=== PATIENT | female | born 1940 | race Hispanic/Latino ===

== ENCOUNTER 2020-03-04 11:14 | Inpatient (IN) | payer OTHER ==
[~2020-03-04] VITALS: Ht 167.6 cm; Wt 66.2 kg
[~2020-03-04 11:14] MED LIST: LISI1TAB29 PO; SIMV10TA97 PO
[2020-03-04 11:51] LABS: ABG BASE EXCESS 3.4 mmol/L (-2.0-3.0); ABG HCO3 26.5 mmol/L (21.0-28.0); ABG OXYGEN SATURATION 91.7 % (95.0-99.0); ABG PCO2 36 mmHg (32-45)
[2020-03-04 12:00] LABS: RAPID GROUP A STREP NEGATIVE (NEGATIVE)
[2020-03-04 12:31] LABS: BASOPHILS % (AUTO) 0.3 % (0.0-5.0); HEMATOCRIT 36.6 % (36-48); LYMPHOCYTES % (AUTO) 10.4 % (21.0-51.0); MEAN CORPUSCULAR HEMOGLOBIN 28.6 pg (27.0-33.0); MEAN CORPUSCULAR HGB CONC 33.3 g/dL (32.0-36.0); MEAN CORPUSCULAR VOLUME 85.9 fL (79-99); MONOCYTES % (AUTO) 13.2 % (3.0-13.0); NEUTROPHILS % (AUTO) 74.8 % (40.0-77.0); PLATELET COUNT (AUTO) 152 K/uL (130-400); RED BLOOD CELL COUNT(AUTO) 4.26 MIL/uL (4.00-5.50); RED CELL DISTRIBUTION WIDTH 13.2 % (11.0-15.5)
[2020-03-04 12:47] LABS: POTASSIUM 3.9 mmol/L (3.5-5.1)
[2020-03-04 12:52] LABS: BILIRUBIN,TOTAL 0.8 mg/dL (0.2-1.0); INR 0.92 (0.85-1.15); TOTAL PROTEIN, SERUM 7.3 g/dL (6.0-8.3)
[2020-03-04 14:43] LABS: APPEARANCE,URINE Clear (CLEAR); BILIRUBIN,URINE Negative (NEGATIVE); COLOR,URINE Yellow (YELLOW); GLUCOSE, URINE (UA) Negative (NEGATIVE); KETONES,URINE Negative (NEGATIVE); LEUKOCYTE ESTERASE ,URINE Negative (NEGATIVE); NITRATE,URINE Negative (NEGATIVE); OCCULT BLOOD,URINE Negative (NEGATIVE); PH,URINE 6.5 (5.0-8.0); PROTEIN,URINE POS 1+ mg/dL (NEGATIVE)
[2020-03-04 14:47] LABS: BACTERIA,URINE Few /HPF (None Seen); RBC,URINE None Seen /HPF (0-1); WBC,URINE 0-1 /HPF (0-1)
[2020-03-04] MEDS ORDERED: LACTULOSE 20 GM/30 ML UDCUP PO PRN (15:45)
[2020-03-04] MEDS ORDERED: ACETAMINOPHEN 325 MG TAB PO PRN ×2 (15:45)
[2020-03-04] MEDS: CEFTRIAXONE SODIUM 1 GM IV SCH (15:45)
[2020-03-04] MEDS ORDERED: ONDANSETRON HCL 4 MG/2 ML VIAL IV PRN (15:45)
[2020-03-04] MEDS ORDERED: HYDRALAZINE HCL 20 MG/ML VIAL IV PRN (15:45)
[2020-03-04] MEDS: AZITHROMYCIN 500MG+NS 250ML 250 ML IV SCH (15:45)
[2020-03-04 17:03] LABS: CRP QUANTITATIVE 111.5 mg/L (0.00-9.0)
[2020-03-04] MEDS ORDERED: CEFTRIAXONE SODIUM 1 GM ONE (17:35)
[2020-03-04] MEDS ORDERED: AZITHROMYCIN 500MG+NS 250ML 250 ML IV ONE (17:35)
[2020-03-04] MEDS ORDERED: ACETAMINOPHEN 325 MG TAB ONE (20:43)
[2020-03-04] MEDS ORDERED: METHYLPREDNISOLONE SOD SUCC 40MG/ML 1ML IVP SCH (21:00)
[2020-03-04] MEDS ORDERED: FAMOTIDINE/PF 20 MG/2 ML VIAL IV ONE (21:06)
[2020-03-05] MEDS ORDERED: FAMOTIDINE 20MG TAB 20 MG TAB ONE ×2 (09:37→20:40)
[2020-03-05] MEDS ORDERED: METHYLPREDNISOLONE SOD SUCC 40MG/ML 1ML ONE ×2 (09:37→20:39)
[2020-03-05] MEDS ORDERED: ENOXAPARIN SODIUM 40 MG/0.4 ML SYRINGE SQ ONE (09:37)
[2020-03-05] MEDS ORDERED: LISI-613 PO (11:07)
[2020-03-05] MEDS ORDERED: ROSU5TAB PO (11:07)
[2020-03-05] MEDS ORDERED: ASPI-556 PO (11:07)
[2020-03-05 13:01] LABS: HEMATOCRIT 36.1 % (36-48); MEAN CORPUSCULAR HEMOGLOBIN 28.9 pg (27.0-33.0); MEAN CORPUSCULAR HGB CONC 33.5 g/dL (32.0-36.0); MEAN CORPUSCULAR VOLUME 86.4 fL (79-99); PLATELET COUNT (AUTO) 181 K/uL (130-400); RED BLOOD CELL COUNT(AUTO) 4.18 MIL/uL (4.00-5.50); RED CELL DISTRIBUTION WIDTH 13.4 % (11.0-15.5)
[2020-03-05 13:22] LABS: ALBUMIN 2.7 g/dL (3.5-5.0); BILIRUBIN,TOTAL 0.6 mg/dL (0.2-1.0); CREATININE 0.8 mg/dL (0.5-1.5); POTASSIUM 4.2 mmol/L (3.5-5.1); TOTAL PROTEIN, SERUM 6.9 g/dL (6.0-8.3)
[2020-03-05 13:57] LABS: EOSINOPHILS % (MANUAL) 1 % (1-6); LYMPHOCYTES % (MANUAL) 8 % (22-44); MAN.DIFF COMMENT-IMPRESSION MANUAL DIFFERENTIAL; MONOCYTES % (MANUAL) 6 % (2-9); PLATELET MORPHOLOGY COMMENT ADEQUATE; SEGMENTED NEUTROPHILS % 85 % (40-70)
[2020-03-05] MEDS ORDERED: NITROGLYCERIN 1GM/1 INCH PACKET TD ONE (13:58)
[2020-03-05] MEDS ORDERED: AZITHROMYCIN 500MG+NS 250ML 250 ML IV ONE (18:08)
[2020-03-05] MEDS ORDERED: CEFTRIAXONE SODIUM 1 GM ONE (18:08)
[2020-03-05] MEDS ORDERED: SODIUM CHLORIDE 0.9% 50 ML IV ONE (18:10)
[2020-03-05] MEDS ORDERED: ALBUTEROL INHALER 90MCG/INH IH ONE (20:39)
[2020-03-05] MEDS ORDERED: NON-FORMULARY MEDICATION 1 EACH (Rosuvastatin Calcium (Crestor) 5 MG) PO SCH (21:00)
[2020-03-05] MEDS: ATORVASTATIN CALCIUM 10 MG TABLET PO SCH (21:00)
[2020-03-05] MEDS ORDERED: ATORVASTATIN CALCIUM 10 MG TABLET ONE (21:15)
[2020-03-06] MEDS ORDERED: METHYLPREDNISOLONE SOD SUCC 40MG/ML 1ML ONE (08:33)
[2020-03-06] MEDS ORDERED: FAMOTIDINE 20MG TAB 20 MG TAB ONE (08:33)
[2020-03-06] MEDS ORDERED: DEXAMETHASONE 4 MG TAB ONE (08:34)
[2020-03-06] MEDS ORDERED: ENOXAPARIN SODIUM 40 MG/0.4 ML SYRINGE SQ ONE (08:34)
[2020-03-06] MEDS: FAMOTIDINE 20MG TAB 20 MG TAB PO SCH ×2 (09:00→22:11)
[2020-03-06] MEDS: ENOXAPARIN SODIUM 40 MG/0.4 ML SYRINGE SQ SCH (09:00)
[2020-03-06] MEDS: ASPIRIN 81 MG EC TAB PO SCH (09:00)
[2020-03-06] MEDS: DEXAMETHASONE SOD PHOSPHATE 4 MG/ML 1ML VIAL IV SCH (09:00)
[2020-03-06] MEDS: LISINOPRIL 20 MG TABLET PO SCH (09:00)
[2020-03-06 10:04] LABS: BASOPHILS % (AUTO) 0.2 % (0.0-5.0); HEMATOCRIT 37.8 % (36-48); LYMPHOCYTES % (AUTO) 10.8 % (21.0-51.0); MEAN CORPUSCULAR HEMOGLOBIN 28.1 pg (27.0-33.0); MEAN CORPUSCULAR HGB CONC 32.5 g/dL (32.0-36.0); MEAN CORPUSCULAR VOLUME 86.3 fL (79-99); MONOCYTES % (AUTO) 12.5 % (3.0-13.0); NEUTROPHILS % (AUTO) 75.2 % (40.0-77.0); PLATELET COUNT (AUTO) 231 K/uL (130-400); RED BLOOD CELL COUNT(AUTO) 4.38 MIL/uL (4.00-5.50); RED CELL DISTRIBUTION WIDTH 13.1 % (11.0-15.5); WHITE BLOOD COUNT (AUTO) 6.4 K/uL (4.8-10.8)
[2020-03-06 10:38] LABS: ALANINE AMINOTRANSFERASE 49 U/L (12-78); ALBUMIN 2.8 g/dL (3.5-5.0); ASPARTATE AMINOTRANSFERASE 64 U/L (10-37); BILIRUBIN,TOTAL 0.5 mg/dL (0.2-1.0); CARBON DIOXIDE 27 mmol/L (21-32); CHLORIDE 104 mmol/L (101-111); CREATININE 0.9 mg/dL (0.5-1.5); GLOMERULAR FILTR. RATE CALC 65 mL/min (>60); GLUCOSE,RANDOM 208 mg/dL (70-105); LACTATE DEHYDROGENASE 346 U/L (81-234); SODIUM SERUM 139 mmol/L (136-145); TOTAL PROTEIN, SERUM 7.2 g/dL (6.0-8.3); UREA NITROGEN, BLOOD 20 mg/dL (7-18)
[2020-03-06] MEDS: NITROGLYCERIN 1GM/1 INCH PACKET TD SCH ×2 (12:30→22:11)
[2020-03-06] MEDS: ALBUTEROL INHALER 90MCG/INH IH SCH ×3 (14:00→22:12)
[2020-03-06] MEDS ORDERED: DEXTROSE 50%-WATER 50 ML DISP.SYRIN IV PRN (14:15)
[2020-03-06] MEDS ORDERED: GLUCAGON 1MG KIT 1 MG ML IM PRN (14:15)
[2020-03-06] MEDS: CEFTRIAXONE SODIUM 1 GM IV SCH (15:45)
[2020-03-06] MEDS: AZITHROMYCIN 500MG+NS 250ML 250 ML IV SCH (15:45)
[2020-03-06 16:00] VITALS: BP 169/89
[2020-03-06] MEDS: INSULIN R PO SS1 SQ SCH ×2 (16:30→22:27)
[2020-03-06 19:45] VITALS: BP 144/73
[2020-03-06] MEDS: ATORVASTATIN CALCIUM 10 MG TABLET PO SCH (22:11)
[2020-03-06 23:26] VITALS: BP 143/66
[2020-03-07] MEDS: ALBUTEROL INHALER 90MCG/INH IH SCH ×6 (02:29→22:19)
[2020-03-07 03:55] VITALS: BP 125/60
[2020-03-07] MEDS: NITROGLYCERIN 1GM/1 INCH PACKET TD SCH ×3 (04:40→21:52)
[2020-03-07] MEDS: INSULIN R PO SS1 SQ SCH ×4 (06:23→21:00)
[2020-03-07] MEDS: DEXAMETHASONE SOD PHOSPHATE 4 MG/ML 1ML VIAL IV SCH (07:26)
[2020-03-07] MEDS: FAMOTIDINE 20MG TAB 20 MG TAB PO SCH ×2 (07:26→21:52)
[2020-03-07] MEDS: LISINOPRIL 20 MG TABLET PO SCH (07:26)
[2020-03-07] MEDS: ASPIRIN 81 MG EC TAB PO SCH (07:27)
[2020-03-07] MEDS: ENOXAPARIN SODIUM 40 MG/0.4 ML SYRINGE SQ SCH ×2 (07:27→21:53)
[2020-03-07 08:00] VITALS: BP 131/67
[2020-03-07 08:08] LABS: BASOPHILS % (AUTO) 0.1 % (0.0-5.0); HEMATOCRIT 34.4 % (36-48); LYMPHOCYTES % (AUTO) 6.2 % (21.0-51.0); MEAN CORPUSCULAR HEMOGLOBIN 28.7 pg (27.0-33.0); MEAN CORPUSCULAR HGB CONC 32.8 g/dL (32.0-36.0); MEAN CORPUSCULAR VOLUME 87.3 fL (79-99); MONOCYTES % (AUTO) 11.7 % (3.0-13.0); NEUTROPHILS % (AUTO) 80.9 % (40.0-77.0); PLATELET COUNT (AUTO) 265 K/uL (130-400); RED BLOOD CELL COUNT(AUTO) 3.94 MIL/uL (4.00-5.50); RED CELL DISTRIBUTION WIDTH 13.1 % (11.0-15.5); WHITE BLOOD COUNT (AUTO) 13.6 K/uL (4.8-10.8)
[2020-03-07 10:21] LABS: ALANINE AMINOTRANSFERASE 75 U/L (12-78); ALBUMIN 2.8 g/dL (3.5-5.0); ASPARTATE AMINOTRANSFERASE 87 U/L (10-37); BILIRUBIN,TOTAL 0.4 mg/dL (0.2-1.0); CARBON DIOXIDE 25 mmol/L (21-32); CHLORIDE 105 mmol/L (101-111); CREATININE 0.9 mg/dL (0.5-1.5); GLOMERULAR FILTR. RATE CALC 65 mL/min (>60); GLUCOSE,RANDOM 163 mg/dL (70-105); LACTATE DEHYDROGENASE 329 U/L (81-234); POTASSIUM 4.3 mmol/L (3.5-5.1); SODIUM SERUM 141 mmol/L (136-145); TOTAL PROTEIN, SERUM 6.6 g/dL (6.0-8.3); UREA NITROGEN, BLOOD 24 mg/dL (7-18)
[2020-03-07 11:00] VITALS: BP 131/69
[2020-03-07] MEDS: AZITHROMYCIN 500MG+NS 250ML 250 ML IV SCH (14:36)
[2020-03-07] MEDS: CEFTRIAXONE SODIUM 1 GM IV SCH (14:36)
[2020-03-07 16:00] VITALS: BP 128/63
[2020-03-07 20:28] VITALS: BP 131/67
[2020-03-07] MEDS: ATORVASTATIN CALCIUM 10 MG TABLET PO SCH (21:52)
[2020-03-07 23:58] VITALS: BP 128/56
[2020-03-08] MEDS: ALBUTEROL INHALER 90MCG/INH IH SCH ×6 (02:56→21:21)
[2020-03-08 04:07] VITALS: BP 142/72
[2020-03-08] MEDS: NITROGLYCERIN 1GM/1 INCH PACKET TD SCH ×3 (04:34→20:55)
[2020-03-08] MEDS: INSULIN R PO SS1 SQ SCH ×4 (06:02→20:56)
[2020-03-08 07:28] LABS: BASOPHILS % (AUTO) 0.1 % (0.0-5.0); HEMATOCRIT 35.9 % (36-48); LYMPHOCYTES % (AUTO) 9.8 % (21.0-51.0); MEAN CORPUSCULAR HEMOGLOBIN 27.6 pg (27.0-33.0); MEAN CORPUSCULAR HGB CONC 31.8 g/dL (32.0-36.0); MEAN CORPUSCULAR VOLUME 86.9 fL (79-99); MONOCYTES % (AUTO) 13.9 % (3.0-13.0); NEUTROPHILS % (AUTO) 74.6 % (40.0-77.0); PLATELET COUNT (AUTO) 273 K/uL (130-400); RED BLOOD CELL COUNT(AUTO) 4.13 MIL/uL (4.00-5.50); RED CELL DISTRIBUTION WIDTH 13.3 % (11.0-15.5); WHITE BLOOD COUNT (AUTO) 11.3 K/uL (4.8-10.8)
[2020-03-08 07:55] LABS: ALANINE AMINOTRANSFERASE 104 U/L (12-78); ALBUMIN 2.7 g/dL (3.5-5.0); ASPARTATE AMINOTRANSFERASE 116 U/L (10-37); BILIRUBIN,TOTAL 0.5 mg/dL (0.2-1.0); CARBON DIOXIDE 29 mmol/L (21-32); CHLORIDE 107 mmol/L (101-111); CREATININE 0.9 mg/dL (0.5-1.5); GLOMERULAR FILTR. RATE CALC 65 mL/min (>60); GLUCOSE,RANDOM 107 mg/dL (70-105); LACTATE DEHYDROGENASE 330 U/L (81-234); POTASSIUM 3.7 mmol/L (3.5-5.1); SODIUM SERUM 142 mmol/L (136-145); TOTAL PROTEIN, SERUM 6.6 g/dL (6.0-8.3); UREA NITROGEN, BLOOD 22 mg/dL (7-18)
[2020-03-08 08:00] VITALS: BP 147/75
[2020-03-08] MEDS: FAMOTIDINE 20MG TAB 20 MG TAB PO SCH ×2 (09:27→20:55)
[2020-03-08] MEDS: LISINOPRIL 20 MG TABLET PO SCH (09:27)
[2020-03-08] MEDS: ASPIRIN 81 MG EC TAB PO SCH (09:27)
[2020-03-08] MEDS: DEXAMETHASONE SOD PHOSPHATE 4 MG/ML 1ML VIAL IV SCH (09:58)
[2020-03-08] MEDS: ENOXAPARIN SODIUM 40 MG/0.4 ML SYRINGE SQ SCH ×2 (09:59→20:56)
[2020-03-08 12:00] VITALS: BP 139/85
[2020-03-08 16:00] VITALS: BP 140/59
[2020-03-08 19:56] VITALS: BP 103/50
[2020-03-08] MEDS: ATORVASTATIN CALCIUM 10 MG TABLET PO SCH (20:55)
[2020-03-08] MEDS: DOXYCYCLINE HYCLATE 100 MG TABLET PO SCH (20:55)
[2020-03-08 23:41] VITALS: BP 124/58
[2020-03-09] MEDS: ALBUTEROL INHALER 90MCG/INH IH SCH ×6 (02:00→21:44)
[2020-03-09 03:21] VITALS: BP 133/69
[2020-03-09] MEDS: NITROGLYCERIN 1GM/1 INCH PACKET TD SCH ×3 (04:23→21:43)
[2020-03-09] MEDS: INSULIN R PO SS1 SQ SCH ×4 (05:58→21:42)
[2020-03-09 07:30] VITALS: BP_SYST 142; BP_SYST 42; BP_DIAS 68
[2020-03-09 07:49] LABS: BASOPHILS % (AUTO) 0.4 % (0.0-5.0); HEMATOCRIT 34.7 % (36-48); LYMPHOCYTES % (AUTO) 7.6 % (21.0-51.0); MEAN CORPUSCULAR HEMOGLOBIN 28.7 pg (27.0-33.0); MEAN CORPUSCULAR HGB CONC 33.1 g/dL (32.0-36.0); MEAN CORPUSCULAR VOLUME 86.5 fL (79-99); MONOCYTES % (AUTO) 16.4 % (3.0-13.0); NEUTROPHILS % (AUTO) 69.4 % (40.0-77.0); PLATELET COUNT (AUTO) 285 K/uL (130-400); RED BLOOD CELL COUNT(AUTO) 4.01 MIL/uL (4.00-5.50); RED CELL DISTRIBUTION WIDTH 13.2 % (11.0-15.5); WHITE BLOOD COUNT (AUTO) 11.2 K/uL (4.8-10.8)
[2020-03-09 08:15] LABS: CARBON DIOXIDE 27 mmol/L (21-32); CHLORIDE 105 mmol/L (101-111); CREATININE 0.9 mg/dL (0.5-1.5); GLOMERULAR FILTR. RATE CALC 65 mL/min (>60); GLUCOSE,RANDOM 111 mg/dL (70-105); LACTATE DEHYDROGENASE 300 U/L (81-234); POTASSIUM 3.7 mmol/L (3.5-5.1); SODIUM SERUM 141 mmol/L (136-145); UREA NITROGEN, BLOOD 21 mg/dL (7-18)
[2020-03-09] MEDS: DOXYCYCLINE HYCLATE 100 MG TABLET PO SCH ×2 (09:51→21:39)
[2020-03-09] MEDS: LISINOPRIL 20 MG TABLET PO SCH (09:51)
[2020-03-09] MEDS: ASPIRIN 81 MG EC TAB PO SCH (09:51)
[2020-03-09] MEDS: DEXAMETHASONE SOD PHOSPHATE 4 MG/ML 1ML VIAL IV SCH ×2 (09:52→21:43)
[2020-03-09] MEDS: FAMOTIDINE 20MG TAB 20 MG TAB PO SCH ×2 (09:52→21:40)
[2020-03-09] MEDS: ENOXAPARIN SODIUM 40 MG/0.4 ML SYRINGE SQ SCH ×2 (09:53→21:44)
[2020-03-09 11:00] VITALS: BP 130/56
[2020-03-09 16:00] VITALS: BP 120/55
[2020-03-09 20:11] VITALS: BP 127/58
[2020-03-09] MEDS: ATORVASTATIN CALCIUM 10 MG TABLET PO SCH (21:39)
[2020-03-09] MEDS: ACETYLCYSTEINE 600 MG CAPSULE PO SCH (21:40)
[2020-03-09 23:33] VITALS: BP 132/61
[2020-03-10] MEDS: ALBUTEROL INHALER 90MCG/INH IH SCH ×6 (01:28→23:56)
[2020-03-10 03:36] VITALS: BP 139/61
[2020-03-10] MEDS: NITROGLYCERIN 1GM/1 INCH PACKET TD SCH ×3 (05:22→20:30)
[2020-03-10] MEDS: INSULIN R PO SS1 SQ SCH ×4 (06:03→21:00)
[2020-03-10 07:05] LABS: BASOPHILS % (AUTO) 0.5 % (0.0-5.0); HEMATOCRIT 34.6 % (36-48); LYMPHOCYTES % (AUTO) 8.5 % (21.0-51.0); MEAN CORPUSCULAR HEMOGLOBIN 27.9 pg (27.0-33.0); MEAN CORPUSCULAR HGB CONC 32.4 g/dL (32.0-36.0); MEAN CORPUSCULAR VOLUME 86.1 fL (79-99); PLATELET COUNT (AUTO) 312 K/uL (130-400); RED BLOOD CELL COUNT(AUTO) 4.02 MIL/uL (4.00-5.50); RED CELL DISTRIBUTION WIDTH 13.2 % (11.0-15.5); WHITE BLOOD COUNT (AUTO) 8.7 K/uL (4.8-10.8)
[2020-03-10 07:20] LABS: ALANINE AMINOTRANSFERASE 89 U/L (12-78); ALBUMIN 2.7 g/dL (3.5-5.0); ASPARTATE AMINOTRANSFERASE 53 U/L (10-37); BILIRUBIN,TOTAL 0.7 mg/dL (0.2-1.0); CARBON DIOXIDE 27 mmol/L (21-32); CHLORIDE 107 mmol/L (101-111); CREATININE 0.9 mg/dL (0.5-1.5); GLOMERULAR FILTR. RATE CALC 65 mL/min (>60); GLUCOSE,RANDOM 167 mg/dL (70-105); LACTATE DEHYDROGENASE 280 U/L (81-234); POTASSIUM 4.8 mmol/L (3.5-5.1); SODIUM SERUM 142 mmol/L (136-145); TOTAL PROTEIN, SERUM 6.6 g/dL (6.0-8.3); UREA NITROGEN, BLOOD 21 mg/dL (7-18)
[2020-03-10 08:00] VITALS: BP 144/62
[2020-03-10] MEDS: FAMOTIDINE 20MG TAB 20 MG TAB PO SCH ×2 (09:39→22:40)
[2020-03-10] MEDS: LISINOPRIL 20 MG TABLET PO SCH (09:39)
[2020-03-10] MEDS: DOXYCYCLINE HYCLATE 100 MG TABLET PO SCH ×2 (09:39→22:39)
[2020-03-10] MEDS: ASPIRIN 81 MG EC TAB PO SCH (09:39)
[2020-03-10] MEDS: DEXAMETHASONE SOD PHOSPHATE 4 MG/ML 1ML VIAL IV SCH ×2 (09:39→22:39)
[2020-03-10] MEDS: ENOXAPARIN SODIUM 40 MG/0.4 ML SYRINGE SQ SCH ×2 (09:40→21:00)
[2020-03-10] MEDS: ACETYLCYSTEINE 600 MG CAPSULE PO SCH ×2 (09:40→22:40)
[2020-03-10 12:00] VITALS: BP 151/62
[2020-03-10] MEDS: INSULIN GLARGINE 100 UNITS/ML 10 ML VIAL SQ SCH ×2 (12:52→21:00)
[2020-03-10 16:00] VITALS: BP 126/72
[2020-03-10 21:12] VITALS: BP 118/67
[2020-03-10] MEDS: ATORVASTATIN CALCIUM 10 MG TABLET PO SCH (22:39)
[2020-03-11 00:52] VITALS: BP 133/60
[2020-03-11] MEDS: ALBUTEROL INHALER 90MCG/INH IH SCH ×6 (03:32→21:52)
[2020-03-11] MEDS: NITROGLYCERIN 1GM/1 INCH PACKET TD SCH ×3 (04:30→21:51)
[2020-03-11 04:45] VITALS: BP 133/64
[2020-03-11 05:53] LABS: BASOPHILS % (AUTO) 0.3 % (0.0-5.0); HEMATOCRIT 33.2 % (36-48); LYMPHOCYTES % (AUTO) 5.7 % (21.0-51.0); MEAN CORPUSCULAR HEMOGLOBIN 28.1 pg (27.0-33.0); MEAN CORPUSCULAR HGB CONC 32.8 g/dL (32.0-36.0); MEAN CORPUSCULAR VOLUME 85.6 fL (79-99); MONOCYTES % (AUTO) 9.5 % (3.0-13.0); PLATELET COUNT (AUTO) 327 K/uL (130-400); RED BLOOD CELL COUNT(AUTO) 3.88 MIL/uL (4.00-5.50); RED CELL DISTRIBUTION WIDTH 13.4 % (11.0-15.5); WHITE BLOOD COUNT (AUTO) 11.9 K/uL (4.8-10.8)
[2020-03-11] MEDS: INSULIN R PO SS1 SQ SCH ×5 (06:15→21:25)
[2020-03-11 06:52] LABS: ALANINE AMINOTRANSFERASE 78 U/L (12-78); ALBUMIN 2.4 g/dL (3.5-5.0); ASPARTATE AMINOTRANSFERASE 41 U/L (10-37); BILIRUBIN,TOTAL 0.5 mg/dL (0.2-1.0); CARBON DIOXIDE 23 mmol/L (21-32); CHLORIDE 105 mmol/L (101-111); CREATININE 0.8 mg/dL (0.5-1.5); GLOMERULAR FILTR. RATE CALC 74 mL/min (>60); GLUCOSE,RANDOM 142 mg/dL (70-105); LACTATE DEHYDROGENASE 264 U/L (81-234); POTASSIUM 3.9 mmol/L (3.5-5.1); SODIUM SERUM 140 mmol/L (136-145); TOTAL PROTEIN, SERUM 6.1 g/dL (6.0-8.3); UREA NITROGEN, BLOOD 25 mg/dL (7-18)
[2020-03-11] MEDS: INSULIN GLARGINE 100 UNITS/ML 10 ML VIAL SQ SCH ×2 (07:18→21:26)
[2020-03-11 09:25] VITALS: BP 122/51
[2020-03-11] MEDS: ACETYLCYSTEINE 600 MG CAPSULE PO SCH ×2 (09:32→21:51)
[2020-03-11] MEDS: LISINOPRIL 20 MG TABLET PO SCH (09:33)
[2020-03-11] MEDS: DEXAMETHASONE SOD PHOSPHATE 4 MG/ML 1ML VIAL IV SCH ×3 (09:33→21:51)
[2020-03-11] MEDS: FAMOTIDINE 20MG TAB 20 MG TAB PO SCH ×2 (09:34→20:27)
[2020-03-11] MEDS: ASPIRIN 81 MG EC TAB PO SCH (09:34)
[2020-03-11] MEDS: ENOXAPARIN SODIUM 40 MG/0.4 ML SYRINGE SQ SCH ×2 (09:34→21:52)
[2020-03-11 13:51] VITALS: BP 127/61
[2020-03-11 17:16] VITALS: BP 122/60
[2020-03-11 20:00] VITALS: BP 129/62
[2020-03-11] MEDS ORDERED: FAMOTIDINE/PF 20 MG/2 ML VIAL IV ONE (20:13)
[2020-03-11] MEDS: ATORVASTATIN CALCIUM 10 MG TABLET PO SCH (21:51)
[2020-03-12] VITALS: BP 143/67
[2020-03-12] MEDS: ALBUTEROL INHALER 90MCG/INH IH SCH ×6 (02:17→22:35)
[2020-03-12 04:00] VITALS: BP 135/62
[2020-03-12] MEDS: NITROGLYCERIN 1GM/1 INCH PACKET TD SCH (04:30)
[2020-03-12] MEDS: INSULIN R PO SS1 SQ SCH ×4 (06:16→22:36)
[2020-03-12] MEDS: INSULIN GLARGINE 100 UNITS/ML 10 ML VIAL SQ SCH ×2 (06:24→22:47)
[2020-03-12 06:42] LABS: BASOPHILS % (AUTO) 0.2 % (0.0-5.0); HEMATOCRIT 34.2 % (36-48); MEAN CORPUSCULAR HEMOGLOBIN 27.9 pg (27.0-33.0); MEAN CORPUSCULAR HGB CONC 32.2 g/dL (32.0-36.0); MEAN CORPUSCULAR VOLUME 86.8 fL (79-99); MONOCYTES % (AUTO) 9.1 % (3.0-13.0); NEUTROPHILS % (AUTO) 77.2 % (40.0-77.0); PLATELET COUNT (AUTO) 367 K/uL (130-400); RED BLOOD CELL COUNT(AUTO) 3.94 MIL/uL (4.00-5.50); RED CELL DISTRIBUTION WIDTH 13.6 % (11.0-15.5); WHITE BLOOD COUNT (AUTO) 12.8 K/uL (4.8-10.8)
[2020-03-12 07:30] LABS: ALANINE AMINOTRANSFERASE 79 U/L (12-78); ALBUMIN 2.5 g/dL (3.5-5.0); ASPARTATE AMINOTRANSFERASE 39 U/L (10-37); BILIRUBIN,TOTAL 0.5 mg/dL (0.2-1.0); CARBON DIOXIDE 26 mmol/L (21-32); CHLORIDE 106 mmol/L (101-111); CREATININE 0.8 mg/dL (0.5-1.5); GLOMERULAR FILTR. RATE CALC 74 mL/min (>60); GLUCOSE,RANDOM 150 mg/dL (70-105); LACTATE DEHYDROGENASE 245 U/L (81-234); POTASSIUM 4.1 mmol/L (3.5-5.1); SODIUM SERUM 140 mmol/L (136-145); TOTAL PROTEIN, SERUM 6.1 g/dL (6.0-8.3); UREA NITROGEN, BLOOD 25 mg/dL (7-18)
[2020-03-12 08:53] VITALS: BP 133/64
[2020-03-12] MEDS: ACETYLCYSTEINE 600 MG CAPSULE PO SCH ×2 (08:54→22:34)
[2020-03-12] MEDS: LISINOPRIL 20 MG TABLET PO SCH (08:54)
[2020-03-12] MEDS: ASPIRIN 81 MG EC TAB PO SCH (08:54)
[2020-03-12] MEDS: DEXAMETHASONE SOD PHOSPHATE 4 MG/ML 1ML VIAL IV SCH ×3 (08:54→22:34)
[2020-03-12] MEDS: ENOXAPARIN SODIUM 40 MG/0.4 ML SYRINGE SQ SCH ×2 (08:56→22:35)
[2020-03-12] MEDS ORDERED: BENZONATATE 100 MG CAPSULE PO PRN (10:30)
[2020-03-12 11:09] VITALS: BP 129/59
[2020-03-12 16:39] VITALS: BP 143/60
[2020-03-12 19:40] VITALS: BP 126/49
[2020-03-12] MEDS: FAMOTIDINE/PF 20 MG/2 ML VIAL IV SCH (22:34)
[2020-03-12] MEDS: ATORVASTATIN CALCIUM 10 MG TABLET PO SCH (22:34)
[2020-03-13 00:21] VITALS: BP 131/66
[2020-03-13] MEDS: ALBUTEROL INHALER 90MCG/INH IH SCH ×6 (03:19→21:49)
[2020-03-13 03:26] VITALS: BP 128/63
[2020-03-13] MEDS: INSULIN R PO SS1 SQ SCH ×4 (05:56→21:00)
[2020-03-13] MEDS: INSULIN GLARGINE 100 UNITS/ML 10 ML VIAL SQ SCH ×2 (06:26→21:50)
[2020-03-13 08:43] VITALS: BP 129/61
[2020-03-13] MEDS: FAMOTIDINE/PF 20 MG/2 ML VIAL IV SCH ×2 (08:52→21:48)
[2020-03-13] MEDS: ASPIRIN 81 MG EC TAB PO SCH (08:53)
[2020-03-13] MEDS: ENOXAPARIN SODIUM 40 MG/0.4 ML SYRINGE SQ SCH ×2 (08:53→21:49)
[2020-03-13] MEDS: LISINOPRIL 20 MG TABLET PO SCH (08:53)
[2020-03-13] MEDS: DEXAMETHASONE SOD PHOSPHATE 4 MG/ML 1ML VIAL IV SCH ×3 (08:53→21:48)
[2020-03-13] MEDS: ACETYLCYSTEINE 600 MG CAPSULE PO SCH ×2 (08:53→21:48)
[2020-03-13 11:12] VITALS: BP 117/57
[2020-03-13 16:57] VITALS: BP 122/62
[2020-03-13] MEDS: METFORMIN HCL 500 MG TABLET PO SCH (17:20)
[2020-03-13 19:30] VITALS: BP 110/59
[2020-03-13] MEDS: ATORVASTATIN CALCIUM 10 MG TABLET PO SCH (21:48)
[2020-03-14] VITALS: BP 113/48
[2020-03-14] MEDS: ALBUTEROL INHALER 90MCG/INH IH SCH ×5 (03:43→21:38)
[2020-03-14 04:00] VITALS: BP 126/54
[2020-03-14 05:41] LABS: BASOPHILS % (AUTO) 0.3 % (0.0-5.0); HEMATOCRIT 36.1 % (36-48); LYMPHOCYTES % (AUTO) 5.3 % (21.0-51.0); MEAN CORPUSCULAR HEMOGLOBIN 28.3 pg (27.0-33.0); NEUTROPHILS % (AUTO) 79.9 % (40.0-77.0); PLATELET COUNT (AUTO) 345 K/uL (130-400); RED CELL DISTRIBUTION WIDTH 13.7 % (11.0-15.5); WHITE BLOOD COUNT (AUTO) 14.2 K/uL (4.8-10.8)
[2020-03-14] MEDS: INSULIN R PO SS1 SQ SCH ×4 (05:58→21:00)
[2020-03-14 06:00] LABS: ALANINE AMINOTRANSFERASE 75 U/L (12-78); ALBUMIN 2.5 g/dL (3.5-5.0); ASPARTATE AMINOTRANSFERASE 37 U/L (10-37); BILIRUBIN,TOTAL 0.7 mg/dL (0.2-1.0); CARBON DIOXIDE 26 mmol/L (21-32); CHLORIDE 104 mmol/L (101-111); GLOMERULAR FILTR. RATE CALC 57 mL/min (>60); GLUCOSE,RANDOM 155 mg/dL (70-105); LACTATE DEHYDROGENASE 219 U/L (81-234); POTASSIUM 4.5 mmol/L (3.5-5.1); SODIUM SERUM 137 mmol/L (136-145); TOTAL PROTEIN, SERUM 5.9 g/dL (6.0-8.3); UREA NITROGEN, BLOOD 31 mg/dL (7-18)
[2020-03-14] MEDS: INSULIN GLARGINE 100 UNITS/ML 10 ML VIAL SQ SCH ×2 (06:45→21:00)
[2020-03-14 08:00] VITALS: BP 118/56
[2020-03-14] MEDS: FAMOTIDINE/PF 20 MG/2 ML VIAL IV SCH ×2 (08:57→21:38)
[2020-03-14] MEDS: ACETYLCYSTEINE 600 MG CAPSULE PO SCH ×2 (08:57→21:38)
[2020-03-14] MEDS: METFORMIN HCL 500 MG TABLET PO SCH ×2 (08:57→17:39)
[2020-03-14] MEDS: ASPIRIN 81 MG EC TAB PO SCH (08:57)
[2020-03-14] MEDS: LISINOPRIL 20 MG TABLET PO SCH (08:57)
[2020-03-14] MEDS: DEXAMETHASONE SOD PHOSPHATE 4 MG/ML 1ML VIAL IV SCH ×3 (08:58→21:38)
[2020-03-14] MEDS: ENOXAPARIN SODIUM 40 MG/0.4 ML SYRINGE SQ SCH ×2 (08:59→21:38)
[2020-03-14 11:00] VITALS: BP 123/74
[2020-03-14 16:00] VITALS: BP 111/44
[2020-03-14] MEDS: ATORVASTATIN CALCIUM 10 MG TABLET PO SCH (21:38)
[2020-03-14 22:22] VITALS: BP 114/54
[2020-03-15 00:04] VITALS: BP 113/55
[2020-03-15] MEDS: ALBUTEROL INHALER 90MCG/INH IH SCH ×6 (01:16→23:02)
[2020-03-15 05:58] VITALS: BP 124/64
[2020-03-15] MEDS: INSULIN GLARGINE 100 UNITS/ML 10 ML VIAL SQ SCH (06:26)
[2020-03-15] MEDS: INSULIN R PO SS1 SQ SCH ×4 (06:26→21:00)
[2020-03-15 06:28] LABS: BASOPHILS % (AUTO) 0.2 % (0.0-5.0); HEMATOCRIT 36.5 % (36-48); LYMPHOCYTES % (AUTO) 5.5 % (21.0-51.0); MEAN CORPUSCULAR HEMOGLOBIN 28.5 pg (27.0-33.0); MEAN CORPUSCULAR HGB CONC 32.3 g/dL (32.0-36.0); MEAN CORPUSCULAR VOLUME 88.2 fL (79-99); NEUTROPHILS % (AUTO) 80.7 % (40.0-77.0); PLATELET COUNT (AUTO) 318 K/uL (130-400); RED BLOOD CELL COUNT(AUTO) 4.14 MIL/uL (4.00-5.50); RED CELL DISTRIBUTION WIDTH 13.8 % (11.0-15.5); WHITE BLOOD COUNT (AUTO) 12.1 K/uL (4.8-10.8)
[2020-03-15 06:43] LABS: ALANINE AMINOTRANSFERASE 72 U/L (12-78); ALBUMIN 2.4 g/dL (3.5-5.0); ASPARTATE AMINOTRANSFERASE 31 U/L (10-37); BILIRUBIN,TOTAL 0.6 mg/dL (0.2-1.0); CARBON DIOXIDE 26 mmol/L (21-32); CHLORIDE 105 mmol/L (101-111); CREATININE 0.9 mg/dL (0.5-1.5); GLOMERULAR FILTR. RATE CALC 65 mL/min (>60); GLUCOSE,RANDOM 149 mg/dL (70-105); LACTATE DEHYDROGENASE 197 U/L (81-234); POTASSIUM 4.8 mmol/L (3.5-5.1); SODIUM SERUM 137 mmol/L (136-145); TOTAL PROTEIN, SERUM 5.6 g/dL (6.0-8.3); UREA NITROGEN, BLOOD 30 mg/dL (7-18)
[2020-03-15 07:26] LABS: HEMOGLOBIN A1C 7.4 % (4.0-6.0)
[2020-03-15] MEDS: FAMOTIDINE/PF 20 MG/2 ML VIAL IV SCH ×2 (08:36→21:00)
[2020-03-15] MEDS: LISINOPRIL 20 MG TABLET PO SCH (08:36)
[2020-03-15] MEDS: ASPIRIN 81 MG EC TAB PO SCH (08:36)
[2020-03-15] MEDS: METFORMIN HCL 500 MG TABLET PO SCH ×3 (08:36→21:00)
[2020-03-15] MEDS: DEXAMETHASONE SOD PHOSPHATE 4 MG/ML 1ML VIAL IV SCH ×3 (08:40→21:00)
[2020-03-15] MEDS: ENOXAPARIN SODIUM 40 MG/0.4 ML SYRINGE SQ SCH ×2 (08:41→21:00)
[2020-03-15] MEDS: ACETYLCYSTEINE 600 MG CAPSULE PO SCH ×2 (10:08→21:00)
[2020-03-15 10:11] VITALS: BP 113/42
[2020-03-15 12:42] VITALS: BP 114/50
[2020-03-15] MEDS: GLIPIZIDE 5 MG TABLET PO SCH (14:14)
[2020-03-15 16:51] VITALS: BP 120/56
[2020-03-15] MEDS ORDERED: INSULIN GLARGINE 100 UNITS/ML 10 ML VIAL SQ SCH (20:00)
[2020-03-15 20:40] VITALS: BP 108/64
[2020-03-15] MEDS: ATORVASTATIN CALCIUM 10 MG TABLET PO SCH (21:00)
[2020-03-16 01:52] VITALS: BP 112/52
[2020-03-16] MEDS: ALBUTEROL INHALER 90MCG/INH IH SCH ×6 (03:14→23:00)
[2020-03-16 04:59] VITALS: BP 108/55
[2020-03-16 05:14] LABS: BASOPHILS % (AUTO) 0.2 % (0.0-5.0); HEMATOCRIT 35.2 % (36-48); LYMPHOCYTES % (AUTO) 4.1 % (21.0-51.0); MEAN CORPUSCULAR HGB CONC 32.7 g/dL (32.0-36.0); MEAN CORPUSCULAR VOLUME 85.9 fL (79-99); MONOCYTES % (AUTO) 8.8 % (3.0-13.0); NEUTROPHILS % (AUTO) 82.9 % (40.0-77.0); PLATELET COUNT (AUTO) 269 K/uL (130-400); RED CELL DISTRIBUTION WIDTH 13.9 % (11.0-15.5); WHITE BLOOD COUNT (AUTO) 13.5 K/uL (4.8-10.8)
[2020-03-16 05:42] LABS: ALANINE AMINOTRANSFERASE 69 U/L (12-78); ALBUMIN 2.3 g/dL (3.5-5.0); ASPARTATE AMINOTRANSFERASE 24 U/L (10-37); BILIRUBIN,TOTAL 0.6 mg/dL (0.2-1.0); CARBON DIOXIDE 25 mmol/L (21-32); CHLORIDE 104 mmol/L (101-111); GLOMERULAR FILTR. RATE CALC 57 mL/min (>60); GLUCOSE,RANDOM 102 mg/dL (70-105); LACTATE DEHYDROGENASE 201 U/L (81-234); SODIUM SERUM 137 mmol/L (136-145); TOTAL PROTEIN, SERUM 5.5 g/dL (6.0-8.3); UREA NITROGEN, BLOOD 30 mg/dL (7-18)
[2020-03-16] MEDS: INSULIN R PO SS1 SQ SCH ×4 (06:22→21:00)
[2020-03-16] MEDS: GLIPIZIDE 5 MG TABLET PO SCH (06:22)
[2020-03-16] MEDS: ENOXAPARIN SODIUM 40 MG/0.4 ML SYRINGE SQ SCH ×2 (08:35→21:00)
[2020-03-16] MEDS: FAMOTIDINE/PF 20 MG/2 ML VIAL IV SCH ×2 (08:35→22:39)
[2020-03-16] MEDS: ASPIRIN 81 MG EC TAB PO SCH (08:35)
[2020-03-16] MEDS: LISINOPRIL 20 MG TABLET PO SCH (08:35)
[2020-03-16] MEDS: METFORMIN HCL 500 MG TABLET PO SCH ×3 (08:36→21:00)
[2020-03-16] MEDS: ACETYLCYSTEINE 600 MG CAPSULE PO SCH ×2 (08:43→21:00)
[2020-03-16] MEDS: DEXAMETHASONE SOD PHOSPHATE 10MG/ML 1ML VIAL IV SCH (08:43)
[2020-03-16 09:40] VITALS: BP 106/67
[2020-03-16 12:22] VITALS: BP 115/58
[2020-03-16 17:38] VITALS: BP 107/48
[2020-03-16] MEDS: ATORVASTATIN CALCIUM 10 MG TABLET PO SCH (21:00)
[2020-03-16 23:00] VITALS: BP 119/51
[2020-03-17 01:04] VITALS: BP 98/74
[2020-03-17] MEDS: ALBUTEROL INHALER 90MCG/INH IH SCH ×6 (02:00→21:08)
[2020-03-17] MEDS: INSULIN R PO SS1 SQ SCH ×4 (05:08→21:00)
[2020-03-17 05:51] VITALS: BP 132/74
[2020-03-17 07:19] LABS: BASOPHILS % (AUTO) 0.2 % (0.0-5.0); EOSINOPHILS % (AUTO) 0.1 % (0.0-8.0); LYMPHOCYTES % (AUTO) 6.6 % (21.0-51.0); MEAN CORPUSCULAR HEMOGLOBIN 28.8 pg (27.0-33.0); MEAN CORPUSCULAR HGB CONC 33.3 g/dL (32.0-36.0); MEAN CORPUSCULAR VOLUME 86.3 fL (79-99); MONOCYTES % (AUTO) 11.6 % (3.0-13.0); NEUTROPHILS % (AUTO) 78.4 % (40.0-77.0); PLATELET COUNT (AUTO) 281 K/uL (130-400); RED BLOOD CELL COUNT(AUTO) 4.17 MIL/uL (4.00-5.50); RED CELL DISTRIBUTION WIDTH 14.1 % (11.0-15.5); WHITE BLOOD COUNT (AUTO) 16.3 K/uL (4.8-10.8)
[2020-03-17 07:55] LABS: CARBON DIOXIDE 26 mmol/L (21-32); CHLORIDE 102 mmol/L (101-111); CREATININE 0.9 mg/dL (0.5-1.5); GLOMERULAR FILTR. RATE CALC 65 mL/min (>60); GLUCOSE,RANDOM 69 mg/dL (70-105); POTASSIUM 4.5 mmol/L (3.5-5.1); SODIUM SERUM 135 mmol/L (136-145); UREA NITROGEN, BLOOD 36 mg/dL (7-18)
[2020-03-17 08:00] VITALS: BP 98/43
[2020-03-17] MEDS: FAMOTIDINE/PF 20 MG/2 ML VIAL IV SCH ×2 (09:20→21:07)
[2020-03-17] MEDS: ACETYLCYSTEINE 600 MG CAPSULE PO SCH ×2 (09:20→21:07)
[2020-03-17] MEDS: METFORMIN HCL 500 MG TABLET PO SCH ×3 (09:20→21:07)
[2020-03-17] MEDS: LISINOPRIL 20 MG TABLET PO SCH (09:20)
[2020-03-17] MEDS: ASPIRIN 81 MG EC TAB PO SCH (09:20)
[2020-03-17] MEDS: ENOXAPARIN SODIUM 40 MG/0.4 ML SYRINGE SQ SCH (09:21)
[2020-03-17] MEDS: DEXAMETHASONE SOD PHOSPHATE 10MG/ML 1ML VIAL IV SCH (09:25)
[2020-03-17 12:00] VITALS: BP 97/48
[2020-03-17] MEDS ORDERED: SODIUM CHLORIDE 0.9% 1000ML 1,000 ML IV SCH (14:00)
[2020-03-17 16:00] VITALS: BP 99/50
[2020-03-17] MEDS: DEXAMETHASONE 4 MG TAB PO SCH (21:07)
[2020-03-17] MEDS: ATORVASTATIN CALCIUM 10 MG TABLET PO SCH (21:07)
[2020-03-17 21:53] VITALS: BP 109/52
[2020-03-18] MEDS: ALBUTEROL INHALER 90MCG/INH IH SCH ×6 (01:45→21:22)
[2020-03-18 02:01] VITALS: BP 120/62
[2020-03-18] MEDS: INSULIN R PO SS1 SQ SCH ×4 (06:01→21:00)
[2020-03-18 06:09] VITALS: BP 134/59
[2020-03-18 06:48] LABS: LACTATE DEHYDROGENASE 167 U/L (81-234)
[2020-03-18 08:30] VITALS: BP 96/50
[2020-03-18] MEDS: METFORMIN HCL 500 MG TABLET PO SCH ×3 (08:56→21:21)
[2020-03-18] MEDS: ACETYLCYSTEINE 600 MG CAPSULE PO SCH ×2 (08:57→21:22)
[2020-03-18] MEDS: FAMOTIDINE/PF 20 MG/2 ML VIAL IV SCH ×2 (08:57→21:21)
[2020-03-18] MEDS: DEXAMETHASONE 4 MG TAB PO SCH ×2 (08:57→21:21)
[2020-03-18] MEDS: ASPIRIN 81 MG EC TAB PO SCH (08:57)
[2020-03-18] MEDS: ENOXAPARIN SODIUM 40 MG/0.4 ML SYRINGE SQ SCH (08:58)
[2020-03-18 11:00] VITALS: BP 108/58
[2020-03-18 15:31] VITALS: BP 110/70
[2020-03-18 21:14] VITALS: BP 110/47
[2020-03-18] MEDS: ATORVASTATIN CALCIUM 10 MG TABLET PO SCH (21:21)
[2020-03-19 00:33] VITALS: BP 107/42
[2020-03-19] MEDS: ALBUTEROL INHALER 90MCG/INH IH SCH ×2 (01:01→05:37)
[2020-03-19 05:36] LABS: BASOPHILS % (AUTO) 0.2 % (0.0-5.0); HEMATOCRIT 34.4 % (36-48); LYMPHOCYTES % (AUTO) 4.9 % (21.0-51.0); MEAN CORPUSCULAR HEMOGLOBIN 28.7 pg (27.0-33.0); MEAN CORPUSCULAR HGB CONC 33.4 g/dL (32.0-36.0); MEAN CORPUSCULAR VOLUME 85.8 fL (79-99); MONOCYTES % (AUTO) 5.7 % (3.0-13.0); PLATELET COUNT (AUTO) 227 K/uL (130-400); RED BLOOD CELL COUNT(AUTO) 4.01 MIL/uL (4.00-5.50); RED CELL DISTRIBUTION WIDTH 13.9 % (11.0-15.5)
[2020-03-19] MEDS: INSULIN R PO SS1 SQ SCH ×2 (05:36→11:21)
[2020-03-19 06:25] VITALS: BP 126/63
[2020-03-19 06:29] LABS: CARBON DIOXIDE 24 mmol/L (21-32); CHLORIDE 101 mmol/L (101-111); CREATININE 0.8 mg/dL (0.5-1.5); GLOMERULAR FILTR. RATE CALC 74 mL/min (>60); GLUCOSE,RANDOM 145 mg/dL (70-105); LACTATE DEHYDROGENASE 199 U/L (81-234); POTASSIUM 4.7 mmol/L (3.5-5.1); SODIUM SERUM 133 mmol/L (136-145); UREA NITROGEN, BLOOD 31 mg/dL (7-18)
[2020-03-19 07:30] VITALS: BP_SYST 124; BP_SYST 96; BP_DIAS 56; BP_DIAS 73
[2020-03-19] MEDS: ACETYLCYSTEINE 600 MG CAPSULE PO SCH (09:50)
[2020-03-19] MEDS: ASPIRIN 81 MG EC TAB PO SCH (09:50)
[2020-03-19] MEDS: METFORMIN HCL 500 MG TABLET PO SCH (09:50)
[2020-03-19] MEDS: DEXAMETHASONE 4 MG TAB PO SCH (09:51)
[2020-03-19] MEDS: ENOXAPARIN SODIUM 40 MG/0.4 ML SYRINGE SQ SCH (09:51)
[2020-03-19] MEDS: FAMOTIDINE/PF 20 MG/2 ML VIAL IV SCH (09:52)
[2020-03-19 11:00] VITALS: BP 126/51
== END 2020-03-19 17:24 | disposition home or self-care (01) | DRG 177 ==
LOC: EDH 11:14 → EDHIP 15:45 → 4CH 03-06 15:40
PROVIDERS: ADMIT Internal Medicine; ATTEND Internal Medicine
DX: U07.1 COVID-19 (principal); J12.89 Other viral pneumonia; J96.01 Acute respiratory failure with hypoxia; I10 Essential (primary) hypertension; E11.9 Type 2 diabetes mellitus without complications; E78.5 Hyperlipidemia, unspecified; R54 Age-related physical debility; Z90.710 Acquired absence of both cervix and uterus; Z90.49 Acquired absence of other specified parts of digestive tract; Z79.82 Long term (current) use of aspirin; Z82.3 Family history of stroke; Z82.5 Family history of asthma and other chronic lower respiratory diseases; Z83.3 Family history of diabetes mellitus; Z82.0 Family history of epilepsy and other diseases of the nervous system; Z82.49 Family history of ischemic heart disease and other diseases of the circulatory system
CPT/HCPCS: 36415; 36600; 71045; 80048; 80053; 81001; 82550; 82728; 82803; 82948; 83036; 83605; 83615; 84145; 84484; 85025; 85378; 85610; 85730; 86140; 86850; 86900; 86901; 87804; 87880; 93005; 94760; 97039; G0378; J0456; J0696; J1100; J1650; J1815; J2920; J3490; J8540; U0003

== ENCOUNTER → 2020-10-01 | Outpatient (CLI) | payer MEDICARE ==
[~2020-10-01] MED LIST changes: +ASPI-556 PO; -LISI1TAB29 PO; +ROSU5TAB PO; -SIMV10TA97 PO
== END | disposition home or self-care (01) ==
LOC: RAH 10:00
PROVIDERS: ATTEND Internal Medicine Critical Care Medicine
DX: K86.3 Pseudocyst of pancreas (principal); K85.90 Acute pancreatitis without necrosis or infection, unspecified; Z86.16 Personal history of COVID-19
CPT/HCPCS: 71250

== ENCOUNTER → 2021-01-05 | Outpatient (CLI) | payer MEDICARE ==
[~2021-01-05] MED LIST changes: +IOHEXOL 350 MG/ML 100ML INFUS..BTL IV ONE
== END | disposition home or self-care (01) ==
LOC: RAH 09:53
PROVIDERS: ATTEND Internal Medicine
DX: K86.3 Pseudocyst of pancreas (principal); K86.2 Cyst of pancreas; Z87.19 Personal history of other diseases of the digestive system; Z90.49 Acquired absence of other specified parts of digestive tract; Z90.711 Acquired absence of uterus with remaining cervical stump
CPT/HCPCS: 74178; Q9967

== ENCOUNTER 2021-02-01 07:58 | Day surgery (SDC) | payer MEDICARE ==
[2021-02-01] VITALS (17 sets, daily range): BP systolic 120–205; BP diastolic 61–92
[~2021-02-01] VITALS: Ht 167.6 cm; Wt 65.1 kg
[~2021-02-01 07:58] MED LIST changes: +ACET-66 PO; +CYAN-35 PO; +GABA-529 PO; -IOHEXOL 350 MG/ML 100ML INFUS..BTL IV ONE; +KETO5DRO82 OP; +LISI20TA24 PO; +MULT-1205 PO; +SODIUM CHLORIDE 0.9% 1000ML 1,000 ML IV ONE; +VITAD400 GT; +ZINC30CA PO
[2021-02-01] MEDS ORDERED: SUCCINYLCHOLINE 200MG/10ML SYR ONE (11:25)
[2021-02-01] MEDS ORDERED: PROPOFOL 10 MG/ML 20ML VIAL IV ONE (11:25)
[2021-02-01] MEDS ORDERED: HYDRALAZINE HCL 20 MG/ML VIAL ONE (12:38)
[2021-02-01 14:17] LABS: GLUCOSE,BODY FLUID 18 mg/dL (1-40)
[2021-02-01 14:44] LABS: AMYLASE,BODY FLUID 3063 U/L
== END 2021-02-01 14:05 | disposition home or self-care (01) ==
LOC: DAH 07:58 → ENDO 07:58
PROVIDERS: ATTEND Internal Medicine Gastroenterology
DX: K86.2 Cyst of pancreas (principal); Z20.822 Contact with and (suspected) exposure to COVID-19; K80.20 Calculus of gallbladder without cholecystitis without obstruction; I10 Essential (primary) hypertension; E11.9 Type 2 diabetes mellitus without complications; E78.5 Hyperlipidemia, unspecified; R97.0 Elevated carcinoembryonic antigen [CEA]; Z90.710 Acquired absence of both cervix and uterus; Z90.49 Acquired absence of other specified parts of digestive tract; Z98.890 Other specified postprocedural states; Z98.49 Cataract extraction status, unspecified eye; Z79.82 Long term (current) use of aspirin; Z79.899 Other long term (current) drug therapy; Z98.891 History of uterine scar from previous surgery; Z90.89 Acquired absence of other organs; Z72.89 Other problems related to lifestyle
CPT/HCPCS: 36415; 43242; 82150; 82378; 82945; 82948; 87635; 93005; A4215 ×3; A4216; A4221; A4222; A4223; A4606; A4657; A4663; C9803; J0330; J0360; J2704; J7030 ×2

== ENCOUNTER → 2021-03-04 | Outpatient (CLI) | payer MEDICARE ==
[~2021-03-04] MED LIST changes: -SODIUM CHLORIDE 0.9% 1000ML 1,000 ML IV ONE
== END | disposition home or self-care (01) ==
LOC: RAH 07:25
PROVIDERS: ATTEND Internal Medicine Gastroenterology
DX: K76.0 Fatty (change of) liver, not elsewhere classified (principal); N28.1 Cyst of kidney, acquired; K86.3 Pseudocyst of pancreas
CPT/HCPCS: 74181

== ENCOUNTER → 2021-04-05 | Outpatient (CLI) | payer MEDICARE ==
[~2021-04-05] MED LIST changes: +CARB15DR OP; +CYCL30DR OP; +ZINC220T4 PO; -ZINC30CA PO
[2021-04-05 10:23] LABS: BASOPHILS % (AUTO) 1.1 % (0.0-5.0); EOSINOPHILS % (AUTO) 5.4 % (0.0-8.0); HEMATOCRIT 35.2 % (36-48); LYMPHOCYTES % (AUTO) 19.8 % (21.0-51.0); MEAN CORPUSCULAR HEMOGLOBIN 28.9 pg (27.0-33.0); MEAN CORPUSCULAR HGB CONC 32.4 g/dL (32.0-36.0); MEAN CORPUSCULAR VOLUME 89.1 fL (79-99); MONOCYTES % (AUTO) 11.6 % (3.0-13.0); NEUTROPHILS % (AUTO) 61.6 % (40.0-77.0); PLATELET COUNT (AUTO) 214 K/uL (130-400); RED BLOOD CELL COUNT(AUTO) 3.95 MIL/uL (4.00-5.50); RED CELL DISTRIBUTION WIDTH 13.6 % (11.0-15.5); WHITE BLOOD COUNT (AUTO) 6.1 K/uL (4.8-10.8)
[2021-04-05 10:43] LABS: ALBUMIN 3.8 g/dL (3.5-5.0); BILIRUBIN,TOTAL 0.8 mg/dL (0.2-1.0); CREATININE 1.2 mg/dL (0.5-1.5); POTASSIUM 4.9 mmol/L (3.5-5.1); TOTAL PROTEIN, SERUM 7.5 g/dL (6.0-8.3)
== END | disposition home or self-care (01) ==
LOC: LAB 09:01
PROVIDERS: ATTEND Internal Medicine
DX: K86.3 Pseudocyst of pancreas (principal)
CPT/HCPCS: 36415; 80053; 83690; 85025

== ENCOUNTER 2021-04-14 10:26 | Day surgery (SDC) | payer MEDICARE ==
[2021-04-14] VITALS (16 sets, daily range): BP systolic 134–182; BP diastolic 51–76
[~2021-04-14] VITALS: Ht 165.1 cm; Wt 64.4 kg
[~2021-04-14 10:26] MED LIST changes: +0.9%NACL 1000ML 1,000 ML IV ONE; +IOHEXOL-350 50ML VIAL IV ONE
[2021-04-14] MEDS ORDERED: 0.9%NACL 1000ML 1,000 ML IV ONE (10:43)
[2021-04-14] MEDS ORDERED: FENTANYL CITRATE PF 50 MCG/1 ML 2ML VIAL ONE (13:27)
[2021-04-14] MEDS ORDERED: PROPOFOL 10 MG/ML 20ML VIAL IV ONE (13:27)
== END 2021-04-14 15:45 | disposition home or self-care (01) ==
LOC: ENDO 10:26 → DAH 10:26 → ENDO 15:45
PROVIDERS: ATTEND Internal Medicine Gastroenterology
DX: K86.3 Pseudocyst of pancreas (principal); Z20.822 Contact with and (suspected) exposure to COVID-19; I10 Essential (primary) hypertension; E78.5 Hyperlipidemia, unspecified; Z79.899 Other long term (current) drug therapy; Z79.82 Long term (current) use of aspirin; Z90.49 Acquired absence of other specified parts of digestive tract; Z90.710 Acquired absence of both cervix and uterus; Z98.890 Other specified postprocedural states; Z98.891 History of uterine scar from previous surgery; Z90.89 Acquired absence of other organs; Z72.89 Other problems related to lifestyle
CPT/HCPCS: 43237; 43240; 87635; A4215 ×2; A4221; A4222; A4223; A4606; A4657; A4663; C1877; C9803; J2704; J3010; J7030 ×2; Q9967

== ENCOUNTER → 2021-04-20 | Outpatient (CLI) | payer MEDICARE ==
[~2021-04-20] MED LIST changes: -0.9%NACL 1000ML 1,000 ML IV ONE; +IOHEXOL 350 MG/ML 100ML INFUS..BTL IV ONE; -IOHEXOL-350 50ML VIAL IV ONE
== END | disposition home or self-care (01) ==
LOC: RAH 10:20
PROVIDERS: ATTEND Internal Medicine Gastroenterology
DX: K86.3 Pseudocyst of pancreas (principal); N26.1 Atrophy of kidney (terminal)
CPT/HCPCS: 74178; Q9967

== ENCOUNTER 2021-06-21 05:44 | Day surgery (SDC) | payer MEDICARE ==
[~2021-06-21] VITALS: Ht 165.1 cm; Wt 63.5 kg
[2021-06-21] VITALS (7 sets, daily range): BP systolic 107–183; BP diastolic 42–82
[~2021-06-21 05:44] MED LIST changes: -ASPI-556 PO; -GABA-529 PO; -IOHEXOL 350 MG/ML 100ML INFUS..BTL IV ONE; -MULT-1205 PO
[2021-06-21] MEDS ORDERED: 0.9%NACL 1000ML 1,000 ML IV ONE (06:24)
[2021-06-21] MEDS ORDERED: SIMETHICONE 40 MG/0.6 ML ML ONE (07:44)
[2021-06-21] MEDS ORDERED: PROPOFOL 10 MG/ML 20ML VIAL IV ONE ×3 (07:45→08:40)
[2021-06-21] MEDS ORDERED: LIDOCAINE HCL 1% 20 ML VIAL ONE (07:46)
== END 2021-06-21 08:55 | disposition home or self-care (01) ==
LOC: DAH 05:44 → ENDO 05:44
PROVIDERS: ATTEND Internal Medicine Gastroenterology
DX: T18.3XXA Foreign body in small intestine, initial encounter (principal); Z20.822 Contact with and (suspected) exposure to COVID-19; T18.2XXA Foreign body in stomach, initial encounter; K86.3 Pseudocyst of pancreas; I10 Essential (primary) hypertension; E78.5 Hyperlipidemia, unspecified; Z79.82 Long term (current) use of aspirin; Z90.49 Acquired absence of other specified parts of digestive tract; Z90.710 Acquired absence of both cervix and uterus; Z98.890 Other specified postprocedural states; Z98.891 History of uterine scar from previous surgery; Z90.89 Acquired absence of other organs; Z72.89 Other problems related to lifestyle; Z79.899 Other long term (current) drug therapy
CPT/HCPCS: 43247; 82948 ×2; 87635; 93005; A4215 ×2; A4221; A4222; A4223; A4606; A4620; A4657; A4663; C9803; J2704 ×3; J7030

== ENCOUNTER → 2022-04-27 | Outpatient (CLI) | payer MEDICARE ==
[~2022-04-27] MED LIST changes: +IOHEXOL 350 MG/ML 100ML INFUS..BTL IV ONE
== END | disposition home or self-care (01) ==
LOC: RAH 09:25
PROVIDERS: ATTEND Internal Medicine Gastroenterology
DX: K86.89 Other specified diseases of pancreas (principal); K86.3 Pseudocyst of pancreas; N26.1 Atrophy of kidney (terminal); Z90.49 Acquired absence of other specified parts of digestive tract
CPT/HCPCS: 74170; Q9967

== ENCOUNTER → 2023-01-11 | Outpatient (CLI) | payer MEDICARE ==
[~2023-01-11] MED LIST changes: -IOHEXOL 350 MG/ML 100ML INFUS..BTL IV ONE; +IOHEXOL-350 75 ML VIAL IV ONE
== END | disposition home or self-care (01) ==
LOC: RAH 08:18
PROVIDERS: ATTEND Internal Medicine Gastroenterology
DX: K86.3 Pseudocyst of pancreas (principal); R10.9 Unspecified abdominal pain; M47.815 Spondylosis without myelopathy or radiculopathy, thoracolumbar region; K57.90 Diverticulosis of intestine, part unspecified, without perforation or abscess without bleeding; I25.10 Atherosclerotic heart disease of native coronary artery without angina pectoris
CPT/HCPCS: 74170; Q9967

== ENCOUNTER → 2023-06-21 | Outpatient (CLI) | payer MEDICARE ==
[~2023-06-21] MED LIST changes: +IOHEXOL 350 MG/ML 100ML INFUS..BTL IV ONE; -IOHEXOL-350 75 ML VIAL IV ONE
== END | disposition home or self-care (01) ==
LOC: RAH 08:11
PROVIDERS: ATTEND Internal Medicine Gastroenterology
DX: N26.1 Atrophy of kidney (terminal) (principal); K86.3 Pseudocyst of pancreas; K86.89 Other specified diseases of pancreas; Z90.49 Acquired absence of other specified parts of digestive tract
CPT/HCPCS: 74170; Q9967

== ENCOUNTER → 2025-07-15 | Outpatient (CLI) | payer MEDICARE ==
[~2025-07-15] MED LIST changes: -ACET-66 PO; +AMLO-258 PO; -CARB15DR OP; -CYAN-35 PO; -CYCL30DR OP; +DAPA5TAB PO; -IOHEXOL 350 MG/ML 100ML INFUS..BTL IV ONE; -KETO5DRO82 OP; +LINA290C PO; -LISI20TA24 PO; -ROSU5TAB PO; -VITAD400 GT; -ZINC220T4 PO
--- NOTE | 2025-07-16 09:30 | HMCIMG ---
EXAMINATION: CT EXAMINATION OF THE CHEST WITHOUT CONTRAST CLINICAL HISTORY: Idiopathic pulmonary fibrosis. TECHNIQUE: Thin collimated axial CT images of the chest were obtained with sagittal and coronal reformatted images also submitted for interpretation. The total dose length product has been recorded in the electronic medical record. COMPARISON: None. FINDINGS: Central airways are patent. Chronic obstructive pulmonary disease changes. Subpleural interseptal thickening in both lungs and fibrotic bands in both lower lobes ??? early interstitial lung disease. 2 mm to 3 mm nodules in both lower lobes (series 5, image 12). 2 mm calcified nodule in the right middle lobe (series 5, image 127). There is no pleural or pericardial effusion. The heart size is within normal limits. There are atheromatous wall calcification of the aorta and coronary arteries. There is ascending aortic aneurysm measuring 4.0 x 3.9 cm. There is no axillary, supraclavicular, or mediastinal lymphadenopathy. Hilar jere stations are inadequately assessed without intravenous contrast. There is no focal thyroid abnormality. Limited noncontrast views of the upper abdomen demonstrate a 7 mm gallbladder calculus with wall calcifications; atrophic left kidney. There is multilevel mild degenerative spondylosis of the spine. There is no acute osseous abnormality. IMPRESSION: 2 mm to 3 mm nodules in both lower lobes ??? Lung-RADS category 2. Continue annual screening with low dose CT. Chronic obstructive pulmonary disease changes. Subpleural interseptal thickening in both lungs and fibrotic bands in both lower lobes ??? early interstitial lung disease. No pulmonary infiltrates or pleural effusions. Atherosclerosis and coronary artery disease. Atrophic left kidney. Gallstones. /[place]
== END | disposition home or self-care (01) ==
LOC: RAH 14:10
PROVIDERS: ATTEND Internal Medicine
DX: J44.9 Chronic obstructive pulmonary disease, unspecified (principal); I25.10 Atherosclerotic heart disease of native coronary artery without angina pectoris; K80.20 Calculus of gallbladder without cholecystitis without obstruction; N26.1 Atrophy of kidney (terminal); J84.112 Idiopathic pulmonary fibrosis; R91.8 Other nonspecific abnormal finding of lung field; M47.814 Spondylosis without myelopathy or radiculopathy, thoracic region
CPT/HCPCS: 71250